=== PATIENT | male | born 1945 | race Caucasian/White ===

== ENCOUNTER 2020-01-24 15:47 | Emergency (ER) | payer MEDICARE, BC ==
[2020-01-24 16:04] VITALS: BP 138/69; PULSE 60
[2020-01-24] MEDS ORDERED: Bacitracin Oint 1 GM U/D Packet TOP ONE (16:28)
--- NOTE | 2020-01-24 17:22 | EDM.PDOC ---
ED HPI GENERAL MEDICAL PROBLEM - General Chief Complaint: Laceration Stated Complaint: RIGHT INDEX FINGER CUT Time Seen by Provider: 01/24/20 16:40 Source of Information: Reports: Patient, RN History Limitations: Reports: No Limitations - History of Present Illness INITIAL COMMENTS - FREE TEXT/NARRATIVE: 74 yo male patient presents to the ED for c/o laceration to the right index finger early this afternoon. He was cutting tree branches and cut his finger with a chainsaw. He was able to replace the skin flap and control the bleeding. He applied a bandage at home. However, the laceration hurt anytime he moved the knuckle so he presented to ED at that time. last tetanus is 2014 according to [facility] although pt thinks he had one in 2018. Onset: Today Onset Date: 01/24/20 Duration: Hour(s): (1-2 hours prior to arrival) Location: Reports: Upper Extremity, Right (index finger) Quality: Reports: Throbbing Severity: Moderate Improves with: Reports: Immobilization Worsens with: Reports: Movement Associated Symptoms: Reports: No Other Symptoms Treatments FINANCIAL SERVICES MANAGER: Reports: Dressing(s) - Related Data Allergies Allergy/AdvReac Type Severity Reaction Status Date / Time venom-honey bee Allergy Swelling Verified 01/24/20 16:13 [bee venom (honey bee)] Home Meds: Home Meds Levothyroxine 1 tab PO DAILY 04/06/15 [History] Omeprazole 1 tab PO BID 04/06/15 [History] Triamterene/Hydrochlorothiazid [Triamterene-HCTZ 37.5-25 MG] 1 tab PO DAILY 04/06/15 [History] atenoloL [Tenormin] 50 mg PO DAILY 04/06/15 [History] Past Medical History Cardiovascular History: Reports: Hypertension Gastrointestinal History: Reports: Hiatal Hernia Musculoskeletal History: Reports: Fracture Other Neuro History: lumbar spine bulging disc Oncologic (Cancer) History: Reports: Prostate, Thyroid - Infectious Disease History Infectious Disease History: Reports: Chicken Pox, Measles, Mumps - Past Surgical History GI Surgical History: Reports: Hernia Repair/Other Other Male Surgeries/Procedures: prostate removed. Other Oncologic Surgeries/Procedures: prostectomy,thyroidectomy Social & Family History - Tobacco Use Smoking Status *Q: Never Smoker - Caffeine Use Caffeine Use: Reports: Coffee ED ROS GENERAL - Review of Systems Review Of Systems: See Below Constitutional: Reports: No Symptoms Respiratory: Reports: No Symptoms Cardiovascular: Reports: No Symptoms Musculoskeletal: Reports: Hand Pain (right index finger) Skin: Reports: Wound Neurological: Reports: No Symptoms Psychiatric: Reports: No Symptoms Hematologic/Lymphatic: Reports: No Symptoms Immunologic: Reports: No Symptoms (jagged laceration to right index finger) ED EXAM, SKIN/RASH Exam: See Below Exam Limited By: No Limitations General Appearance: Alert, No Apparent Distress Respiratory/Chest: No Respiratory Distress, No Accessory Muscle Use Peripheral Pulses: 2+: Radial (L), Radial (R) Extremities: Normal Range of Motion, Normal Capillary Refill Neurological: Alert, Oriented, No Motor/Sensory Deficits (pt has full ROM to right index finger/ able to fully extend and flex with/without resistance- sensation intact- no deficits noted.) Psychiatric: Normal Affect Skin: Warm, Dry, Other (Laceration is 2 cm in lenght and a narrow J shaped. skin flap over the knuckle approx 4mm length x 2mm width) Location, Skin: Upper Extremity, Right (medial side of right index finger) ED SKIN PROCEDURES - Laceration/Wound Repair Right Medial Digit - 2nd (Index) Appearance: Superficial, Irregular ("J" shaped (narrow skin flap)), Mildly Contaminated Distal NVT: Neuro & Vascular Intact, No Tendon Injury Anesthetic Type: Local Local Anesthesia - Lidocaine (Xylocaine): 1% Plain Local Anesthetic Volume: 4cc Skin Prep: Chlorhexidine (Hibiciens), Saline, Sterile Drape Exploration/Debridement/Repair: Wound Explored, Explored to Base, Minimal Debridement, Foreign Material Removed, Multiple Flaps Aligned Closed with: Sutures Lac/Wound length In cm: 2 Suture Size: 4-0 # of Sutures: 10 Suture Type: Prolene Sterile Dressing Applied: Nurse Tetanus Status Addressed: Yes Course - Vital Signs Last Recorded V/S: Last Vital Signs Temp 96 F L 01/24/20 16:17 Pulse 60 01/24/20 16:17 Resp 16 01/24/20 16:17 BP 138/69 01/24/20 16:17 Pulse Ox 96 01/24/20 16:17 - Orders/Labs/Meds Meds: Medications Discontinued Medications Generic Name Dose Route Start Last Admin Trade Name Freq PRN Reason Stop Dose Admin Bacitracin 1 dose 01/24/20 16:28 01/24/20 16:39 Bacitracin Oint 1 Gm TOP 01/24/20 16:29 1 dose ONETIME ONE Administration Lidocaine HCl 5 ml 01/24/20 16:28 01/24/20 16:39 Xylocaine-Mpf 1% INJECT 01/24/20 16:29 5 ml ONETIME ONE Administration Departure - Departure Time of Disposition: 17:18 Disposition: Home, Self-Care 01 Clinical Impression: Laceration of right index finger with foreign body - Discharge Information *PRESCRIPTION DRUG MONITORING PROGRAM REVIEWED*: Not Applicable *COPY OF PRESCRIPTION DRUG MONITORING REPORT IN PATIENT AJAY: Not Applicable Instructions: Sutures, Jaylan, or Adhesive Wound Closure, [id number] Referrals: Umair Barton MD [Primary Care Provider] - Forms: ED Department Discharge Additional Instructions: Keep your stitches clean and dry. Keep covered while working or if wound has a chance to get dirty. Wash and pat dry twice daily. No more ointment on sutures. monitor for signs of infection (redness, warmth, drainage, red streaking, swollen knuckle, and/or fever). If signs of infection are present, you will need to be seen for antibiotics. Suture removal in 8 days. You may return to ED or at clinic to have sutures removed. Call or return to ED with any concerns. Sepsis Event Note (ED) - Evaluation Sepsis Screening Result: No Definite Risk - Focused Exam Vital Signs: Vital Signs Temp Pulse Resp BP Pulse Ox 01/24/20 16:17 96 F L 60 16 138/69 96 01/24/20 16:03 96 F L 60 16 138/69 96
== END 2020-01-24 17:25 | disposition home or self-care (01) ==
LOC: JP.ED 15:47
DX: S61.210A Laceration without foreign body of right index finger without damage to nail, initial encounter (principal); I10 Essential (primary) hypertension; E07.9 Disorder of thyroid, unspecified; Z91.030 Bee allergy status; Z79.899 Other long term (current) drug therapy; W27.0XXA Contact with workbench tool, initial encounter
CPT/HCPCS: 12041; 99282; J2001

== ENCOUNTER 2020-01-29 12:00 | Inpatient (IN) | payer MEDICARE, BC ==
[2020-01-29] MEDS ORDERED: HYDROmorphone 1 MG/ML Syringe IM ONE (12:23)
--- NOTE | 2020-01-29 12:41 | EDM.PDOC ---
ED HPI GENERAL MEDICAL PROBLEM - General Stated Complaint: FALL VIA NORTH Time Seen by Provider: 01/29/20 12:15 Source of Information: Reports: Patient, EMS History Limitations: Reports: No Limitations - History of Present Illness INITIAL COMMENTS - FREE TEXT/NARRATIVE: 74-year-old male was on a ladder about 6 feet off the ground when he slipped sideways and landed on the ladder and hurt his mid back. He also has some superficial abrasions on his left scalp and left shoulder. He has intense pain in the mid back just below the shoulder blades, no shortness of breath, abdominal pain or extremity pain. He was brought in by ambulance. Onset: Sudden Duration: Hour(s): (1 hour ago) Location: Reports: Back Quality: Reports: Burning, Sharp, Stabbing Worsens with: Reports: Other (Sitting up seems to cause more discomfort), Movement Associated Symptoms: Denies: Confusion, Cough, Fever/Chills, Headaches, Malaise, Nausea/Vomiting, Shortness of Breath Upper Back Pain Score (Numeric/FACES): 9 - Related Data Allergies Allergy/AdvReac Type Severity Reaction Status Date / Time venom-honey bee Allergy Swelling Verified 01/29/20 12:31 [bee venom (honey bee)] Home Meds: Home Meds Levothyroxine 1 tab PO DAILY 04/06/15 [History] Omeprazole 1 tab PO BID 04/06/15 [History] Triamterene/Hydrochlorothiazid [Triamterene-HCTZ 37.5-25 MG] 1 tab PO DAILY 04/06/15 [History] atenoloL [Tenormin] 50 mg PO DAILY 04/06/15 [History] Past Medical History Cardiovascular History: Reports: Hypertension Gastrointestinal History: Reports: Hiatal Hernia Musculoskeletal History: Reports: Fracture Other Neuro History: lumbar spine bulging disc Oncologic (Cancer) History: Reports: Prostate, Thyroid - Infectious Disease History Infectious Disease History: Reports: Chicken Pox, Measles, Mumps - Past Surgical History GI Surgical History: Reports: Hernia Repair/Other Other Male Surgeries/Procedures: prostate removed. Other Oncologic Surgeries/Procedures: prostectomy,thyroidectomy Social & Family History - Caffeine Use Caffeine Use: Reports: Coffee Review of Systems - Review of Systems Review Of Systems: See Below Constitutional: Denies: Fever Respiratory: Denies: Shortness of Breath, Pleuritic Chest Pain Cardiovascular: Denies: Chest Pain GI/Abdominal: Denies: Abdominal Pain Musculoskeletal: Reports: Shoulder Pain (Some posterior left shoulder discomfort). Denies: Neck Pain Skin: Reports: Other (Superficial abrasions on the left scalp) Neurological: Denies: Headache ED EXAM, GENERAL - Physical Exam Exam: See Below Exam Limited By: No Limitations General Appearance: Alert, Mild Distress (Intensely uncomfortable his mid thoracic spine with any movement) Eye Exam: Bilateral Eye: Normal Inspection Head: Other (Superficial abrasions are present on the left frontal scalp, no hematoma or bony injury) Neck: Supple, Non-Tender Respiratory/Chest: No Respiratory Distress, Lungs Clear Cardiovascular: Regular Rate, Rhythm GI/Abdominal: Soft, Non-Tender Back Exam: Vertebral Tenderness (Patient has vertebral tenderness to the thoracic spine between the scapula, no visual evidence of trauma such as abrasion, swelling or deformity) Course - Vital Signs Last Recorded V/S: Last Vital Signs Temp 96.2 F L 01/29/20 12:36 Pulse 61 01/29/20 16:06 Resp 16 01/29/20 15:40 BP 157/96 H 01/29/20 16:06 Pulse Ox 98 01/29/20 16:06 - Orders/Labs/Meds Orders: Medication Orders Hydrocodone Bitart/Acetaminophen (Morton 325-5 Mg) 2 tab PO Q4H PRN PRN Reason: Pain (moderate 4-6) Benzocaine/Menthol (Cepacol Sore Throat) 1 lozenge MUCMEM Q1H PRN PRN Reason: Sore Throat Bisacodyl (Dulcolax) 5 mg PO DAILY PRN PRN Reason: Constipation Docusate Sodium (Colace) 100 mg PO BID PRN PRN Reason: Constipation Hydroxyzine HCl (Vistaril) 50 mg IM Q4H PRN PRN Reason: Nausea Sodium Chloride (Normal Saline) 1,000 mls @ 75 mls/hr IV ASDIRECTED [facility] Ondansetron HCl (Zofran) 4 mg IVPUSH Q6H PRN PRN Reason: Nausea/Vomiting Last Admin: 01/29/20 16:22 Dose: 4 mg Documented by: YOVANI Promethazine HCl (Phenergan) 25 mg IM Q6H PRN PRN Reason: Nausea Labs: Laboratory Tests 01/29/20 01/29/20 Range/Units 13:35 13:35 WBC 10.2 (4.5-11.0) K/uL RBC 4.52 (4.30-5.90) M/uL Hgb 13.4 D (12.0-15.0) g/dL Hct 40.4 (40.0-54.0) % MCV 89 (80-98) fL MCH 30 (27-31) pg MCHC 33 (32-36) % Plt Count 258 (150-400) K/uL Add Manual Diff Yes Neutrophils % (Manual) 79 H (36-66) % Band Neutrophils % 3 L (5-11) % Lymphocytes % (Manual) 10 L (24-44) % Monocytes % (Manual) 7 H (2-6) % Eosinophils % (Manual) 1 L (2-4) % Sodium 135 L (140-148) mmol/L Potassium 3.6 (3.6-5.2) mmol/L Chloride 99 L (100-108) mmol/L Carbon Dioxide 29 (21-32) mmol/L Anion Gap 10.6 (5.0-14.0) mmol/L BUN 21 H (7-18) mg/dL Creatinine 1.0 (0.8-1.3) mg/dL Est Cr Clr Drug Dosing 52.16 mL/min Estimated GFR (MDRD) > 60 (>60) Glucose 132 H (74-106) mg/dL Calcium 8.4 L (8.5-10.1) mg/dL Meds: Medications Generic Name Dose Route Start Last Admin Trade Name Freq PRN Reason Stop Dose Admin Hydrocodone Bitart/Acetaminophen 2 tab 01/29/20 15:49 Morton 325-5 Mg PO Q4H PRN Pain (moderate 4-6) Benzocaine/Menthol 1 lozenge 01/29/20 15:49 Cepacol Sore Throat MUCMEM Q1H PRN Sore Throat Bisacodyl 5 mg 01/29/20 15:49 Dulcolax PO DAILY PRN Constipation Docusate Sodium 100 mg 01/29/20 15:49 Colace PO BID PRN Constipation Hydroxyzine HCl 50 mg 01/29/20 15:49 Vistaril IM Q4H PRN Nausea Sodium Chloride 1,000 mls @ 75 mls/hr 01/29/20 16:00 Normal Saline IV ASDIRECTED [facility] Ondansetron HCl 4 mg 01/29/20 15:49 01/29/20 16:22 Zofran IVPUSH 4 mg Q6H PRN Administration Nausea/Vomiting Promethazine HCl 25 mg 01/29/20 15:49 Phenergan IM Q6H PRN Nausea Discontinued Medications Generic Name Dose Route Start Last Admin Trade Name Freq PRN Reason Stop Dose Admin Hydromorphone HCl 1 mg 01/29/20 12:23 01/29/20 12:29 Dilaudid IM 01/29/20 12:24 1 mg ONETIME ONE Administration Hydromorphone HCl 0.5 mg 01/29/20 14:17 01/29/20 14:22 Dilaudid IVPUSH 01/29/20 14:18 0.5 mg ONETIME ONE Administration Sodium Chloride 1,000 mls @ 1,000 mls/hr 01/29/20 13:45 01/29/20 13:41 Normal Saline IV 1,000 mls/hr ASDIRECTED SAM Administration Sodium Chloride 72 mls @ 3.1 mls/sec 01/29/20 14:30 01/29/20 14:39 Normal Saline IV 01/29/20 22:00 3.1 mls/sec ASDIRECTED SAM Administration Iopamidol 105 ml 01/29/20 14:25 01/29/20 14:39 Isovue-300 (61%) IV 01/29/20 14:26 105 ml ONETIME ONE Administration - Re-Assessments/Exams Free Text/Narrative Re-Assessment/Exam: 01/29/20 12:44 Patient was given 1 mg of IM Dilaudid which will be followed by a thoracic spine CT scan. 01/29/20 13:[address] showed no fracture but showed a hematoma around the left kidney. An IV was started, 1000 cc of normal saline was initiated and a CBC and BMP drawn. Plan is a CT abdomen pelvis with IV contrast. 01/29/20 17:08 CT abdomen pelvis confirmed the left kidney hematoma. There appeared to be a small amount of blushing but no brisk bleeding in the area. Hemoglobin is normal. Vitals remained stable. Dr. Avina kindly agreed to admit the patient for observation and monitoring. Departure - Departure Time of Disposition: 17:07 Disposition: Admitted As Inpatient 66 Clinical Impression: Traumatic hematoma of left kidney Abrasion of scalp Qualifiers: Encounter type: initial encounter Qualified Code(s): S00.01XA - Abrasion of scalp, initial encounter - Discharge Information Sepsis Event Note (ED) - Focused Exam Vital Signs: Vital Signs Temp Pulse Resp BP Pulse Ox 01/29/20 15:40 56 L 16 150/92 H 93 L 01/29/20 14:37 175/90 H 99 01/29/20 12:36 96.2 F L 55 L 17 167/90 H 92 L 01/29/20 12:10 96.2 F L 55 L 17 167/90 H 92 L
--- NOTE | 2020-01-29 13:26 | CT ---
Thoracic Spine wo Cont CLINICAL HISTORY: Fall, pain TECHNIQUE: 2 x 2 mm axial sections were taken through the thoracic spine without contrast. MPR images were also obtained and reviewed. Auto dosage reduction and iterative reconstruction techniques employed. FINDINGS: The thoracic vertebral body heights are maintained throughout. There is diffuse disc space narrowing with spondylosis. Alignment is maintained. There is fusion of the C6-7 disc which may be congenital or chronic. The visualized posterior ribs appear intact. Spinous processes appear intact. No paraspinal hematoma is identified. There is dense stranding in the left perinephric and renal space. This suggests a hematoma. There are some chronic lung changes. There are atherosclerotic changes in the aorta. There is some dilatation aortic arch. There is some concentric calcification within the descending thoracic aorta which suggests possible chronic dissection. IMPRESSION: Degenerative disc changes without fracture or subluxation Moderate stranding in the left perinephric and perirenal space suggest renal hematoma surrounding a renal cyst Atheromatous changes in the aorta with concentric intraluminal thrombus versus a chronic dissection
[2020-01-29] MEDS ORDERED: Sodium Chloride 0.9% 1,000 ML IV SCH (13:45)
[2020-01-29] MEDS ORDERED: HYDROmorphone 0.5 MG/0.5 ML Syringe IVPUSH ONE (14:17)
[2020-01-29] MEDS: Iopamidol 612 MG/ML 500 ML Multipack Bottle IV ONE (14:39)
--- NOTE | 2020-01-29 15:06 | CT ---
Abdomen Pelvis w Cont CLINICAL HISTORY: Fall, back pain COMPARISON: None available. TECHNIQUE: Transverse scans were obtained from the base of the lungs to the pubic symphysis following oral contrast and IV infusion of contrast.Auto dosage reduction and iterative reconstructiontechniques employed. FINDINGS: There is a hematoma in the perinephric and pararenal space around the left kidney. There is some contrast in the lower portion of this hematoma suggesting some active bleeding. The there is a low-attenuation focus in the upper pole consistent with the large cyst. There is some internal density which may be related to hemorrhage. There are multiple cysts on the right kidney. Aorta shows moderate atheromatous change. The there is intimal thickening in the thoracic aorta. This could be related to old dissection. Bladder has normal contour. There is a right inguinal hernia which contains peritoneal fat. The lung bases show some mild patchy atelectasis at the left lung base. There is a small hiatal hernia. The liver shows no mass or biliary dilatation. The gallbladder has a normal appearance. The spleen is a smooth contour. There is some stranding in the perisplenic region inferiorly. This is felt to be related to renal trauma. The pancreas shows some fatty infiltration. The adrenal glands are normal bilaterally . The ureters have a normal course and caliber as seen. IMPRESSION: Left renal injury with perinephric and pararenal space hematoma. There is no obvious renal fracture. There is some hemorrhage within a pre-existing renal cyst Small collections of contrast suggests some persistent active bleeding inferiorly. This extends down the right psoas margin into the upper pelvis. Bilateral renal cysts Previous abdominal surgery
[2020-01-29] MEDS ORDERED: Benzocaine/Cetylpyridinium/Menthol Lozenge MUCMEM PRN (15:49)
[2020-01-29] MEDS ORDERED: hydrOXYzine HCL 100 MG/2 ML SDV IM PRN (15:49)
[2020-01-29] MEDS: Ondansetron 4 MG/2 ML SDV IVPUSH PRN ×2 (16:22→20:22)
[2020-01-29] MEDS: Acetaminophen/HYDROcodone 325-5 MG Tab PO PRN (17:30)
[2020-01-29] MEDS: Sodium Chloride 0.9% 1,000 ML IV SCH (18:22)
--- NOTE | 2020-01-29 20:17 | CONS ---
DATE OF SERVICE: 01/29/2020 REFERRING PHYSICIAN: CONSULTING PHYSICIAN: Jose Avina MD Consult for Dr. Rodriguez. INDICATIONS: Trauma. HISTORY OF PRESENT ILLNESS: This is a 74-year-old male who fell about 6 feet from a height off a ladder. The patient landed on his back. His main concern is back pain, which is 3/10 to 4/10. PAST MEDICAL HISTORY: Arnol fundoplication, thyroidectomy, history of hiatal hernia which was repaired via the Arnol fundoplication, history of Meckel diverticulum resection, hypertension. SOCIAL HISTORY: He is not a smoker. FAMILY HISTORY: Noncontributory. REVIEW OF SYSTEMS: GENERAL: The patient is appropriate for condition. HEENT: Pupils are equal. NECK: Supple. LUNGS: Clear. CARDIOVASCULAR: Regular rhythm and rate. ABDOMEN: Mildly obese, nontender, nondistended. EXTREMITIES: Full range of motion. Strength 5/5. NEUROLOGIC: Oriented x3. Cranial nerves 2 through 12 are grossly intact. PSYCHIATRIC: Appropriate for condition. LABORATORY RESULTS: Show a normal hemoglobin, normal white blood cell count. IMAGING DATA: I did review the CT scans, which show a left renal injury with hematoma. There is some question if this is a cyst or actual hematoma. This was not graded by radiologist and radiologist was unable to be contacted. The patient also underwent a thoracic spine CT which did not show any evidence of fracture. ASSESSMENT AND PLAN: Renal injury, left. PLAN: The patient admitted to ICU for serial hemoglobin evaluation. We have been attempted to contact Radiology to further determine the extent of the hematoma. We will continue a full liquid diet. Jose Avina MD /[id number]
[2020-01-29] MEDS: Promethazine 25 MG/ML SDV IM PRN (20:39)
[2020-01-30] MEDS: Acetaminophen/HYDROcodone 325-5 MG Tab PO PRN ×4 (04:01→20:53)
[2020-01-30] MEDS: Promethazine 25 MG/ML SDV IM PRN (04:02)
[2020-01-30] MEDS: Sodium Chloride 0.9% 1,000 ML IV SCH (07:51)
[2020-01-30] MEDS ORDERED: Iopamidol 612 MG/ML 500 ML Multipack Bottle IV ONE (08:15)
[2020-01-30] MEDS: Iopamidol 612 MG/ML 500 ML Multipack Bottle IV ONE (08:18)
--- NOTE | 2020-01-30 09:36 | CT ---
Urogram CT UROGRAM CLINICAL HISTORY: Renal trauma COMPARISON: 01/29/2020 TECHNIQUE: Multiple contiguous axial images were obtained from the level of the lung bases down to the pubic symphysis without and with the IV infusion of iodinated contrast oral contrast was not administered. Coronal and sagital reconstructions of the renal collecting systems, ureters, and bladder were also obtained .Auto dosage reduction and iterative reconstruction techniques employed. FINDINGS:The visualized lung bases show some bibasal atelectasis. There is a small but increasing left pleural effusion.. The liver has a normal contour. Gallbladder contains some IV contrast which is likely related to vicarious excretion. The inferior margin of the spleen is poorly defined as it is involved in the hematoma in the perinephric and perirenal spaces. The pancreas is well defined. There is some fatty infiltration. Both kidneys are excreting. There is some medial displacement of the left ureter due to retroperitoneal hematoma. There is no evidence of excreted contrast within the hematoma or retroperitoneum. The size of the hematoma has increased slightly. There is no evidence of active bleeding. There is atheromatous changes in the aorta. There are bilateral renal cyst.. Patient is a small periumbilical hernia which contains transverse colon. There is no evidence of incarceration. There are nondisplaced fractures of the 9th, 10th and 11th ribs. There is a small but increasing left pleural effusion. This does not appear to be hemothorax IMPRESSION: Slight increase in the size of the left perirenal hematoma. There is no evidence of active bleeding There is no extravasation of contrast from the collecting system Small but increasing left pleural effusion. There are nondisplaced fractures of the posterior 9th, 10th and 11th ribs.
[2020-01-30] MEDS: Pantoprazole 40 MG Tab.CR PO SCH (10:43)
--- NOTE | 2020-01-30 12:43 | PN ---
DATE OF SERVICE: 01/30/2020 SUBJECTIVE: The patient is doing better today. His abdominal pain is well controlled. He had some nausea previously with respect to yesterday, but does not have any issues now. OBJECTIVE: VITAL SIGNS: Stable. Blood pressure 135/74, pulse 64, respiration is 14. ABDOMEN: Nontender, nondistended. CARDIOVASCULAR: Regular rhythm and rate. RESPIRATORY: Lungs clear to auscultation bilaterally. LABORATORY RESULTS: Show a white blood cell count of 10.5, which is down from 11.4, however, appears to be stabilizing. IMAGING DATA: I did review the CT urogram this morning. No urinary extravasation. He feels the bleeding has stopped or has decreased significantly. ASSESSMENT: Renal injury. PLAN: The patient will continue observation. We will change the hemoglobins to q.8 hours. We will also start on regular diet and start some of his home medications at this time. Jose Avina MD /[id number]
[2020-01-31] MEDS: Acetaminophen/HYDROcodone 325-5 MG Tab PO PRN ×4 (03:15→18:43)
[2020-01-31] MEDS: Pantoprazole 40 MG Tab.CR PO SCH (07:46)
[2020-01-31] MEDS: Sodium Chloride 0.9% 1,000 ML IV SCH (07:48)
[2020-01-31] MEDS ORDERED: LEVOTHYROXINE PO SCH (09:00)
--- NOTE | 2020-01-31 11:00 | PN ---
DATE OF SERVICE: 01/31/2020 SUBJECTIVE: The patient is doing very well. Pain is well controlled. No nausea, vomiting, shortness of breath, or chest pain. Doing very well. OBJECTIVE: VITAL SIGNS: Stable. CARDIOVASCULAR: Regular rhythm and rate. RESPIRATORY: Lungs clear to auscultation bilaterally. ABDOMEN: Nondistended, nontender. LABORATORY RESULTS: Show hemoglobin 10.2. ASSESSMENT: Renal trauma. PLAN: We will change his hemoglobin to q.12 hours. If the patient is hemodynamically stable in 24 hours, we will consider for discharge. Jose Avina MD /[id number]
[2020-01-31] MEDS: Bisacodyl 5 MG Tab PO PRN (16:18)
[2020-01-31] MEDS: Docusate Sodium 100 MG Cap PO PRN (16:18)
[2020-01-31] MEDS ORDERED: Aluminum Hydroxide/Magnesium Hydroxide/Simethicone Susp 30 ML Cup PO PRN (18:14)
[2020-01-31] MEDS: Cyclobenzaprine 10 MG Tab PO PRN (20:48)
[2020-02-01] MEDS: Acetaminophen/HYDROcodone 325-5 MG Tab PO PRN ×5 (00:13→20:58)
[2020-02-01] MEDS: Cyclobenzaprine 10 MG Tab PO PRN ×2 (05:15→20:58)
[2020-02-01] MEDS ORDERED: Pantoprazole 40 MG Tab.CR PO SCH (07:00)
[2020-02-01] MEDS: Pantoprazole 40 MG Tab.CR PO SCH (07:38)
[2020-02-01] MEDS: Bisacodyl 5 MG Tab PO PRN (10:27)
[2020-02-01] MEDS: Docusate Sodium 100 MG Cap PO PRN (10:27)
--- NOTE | 2020-02-01 10:49 | PN ---
DATE OF SERVICE: 02/01/2020 SUBJECTIVE: Patient doing well. Hemoglobin did drop to 9.1 today. However, no other concerns. No nausea, vomiting, shortness of breath, or chest pain. OBJECTIVE: VITAL SIGNS: Vital signs are stable. CARDIOVASCULAR: Regular rhythm and rate. RESPIRATORY: Lungs are clear to auscultation bilaterally. ABDOMEN: Incision healing well. ASSESSMENT: Status post renal trauma. PLAN: We will change his hemoglobin to every 24 hours. We will restart his atenolol and hydrochlorothiazide and we will recheck hemoglobin in a.m. Jose Avina MD /[id number]
[2020-02-01] MEDS ORDERED: Atenolol 25 MG Tab PO SCH (11:00)
[2020-02-01] MEDS: Hydrochlorothiazide/Triamterene 25-37.5 Tab PO SCH (11:16)
[2020-02-01] MEDS ORDERED: Magnesium Citrate Solution 296 ML Bottle PO ONE (16:40)
[2020-02-02] MEDS: Cyclobenzaprine 10 MG Tab PO PRN (04:59)
[2020-02-02] MEDS: Acetaminophen/HYDROcodone 325-5 MG Tab PO PRN (04:59)
[2020-02-02 07:12] VITALS: BP 140/80; PULSE 76
[2020-02-02] MEDS: Pantoprazole 40 MG Tab.CR PO SCH (07:17)
[2020-02-02] MEDS: Hydrochlorothiazide/Triamterene 25-37.5 Tab PO SCH (08:14)
[2020-02-02] MEDS ORDERED: Metoprolol Succinate 50 MG Tab.ER PO SCH (09:00)
[2020-02-02] MEDS: Bisacodyl 5 MG Tab PO PRN (09:03)
[2020-02-02] MEDS: Docusate Sodium 100 MG Cap PO PRN (09:03)
--- NOTE | 2020-02-02 09:31 | PN ---
DATE OF SERVICE: 02/02/2020 SUBJECTIVE: The patient is doing well. Hemoglobin is now stable. Pain is well controlled. No nausea, vomiting, shortness of breath, or chest pain. OBJECTIVE: VITAL SIGNS: Stable. CARDIOVASCULAR: Regular rhythm and rate. RESPIRATORY: Lungs are clear to auscultation bilaterally. ABDOMEN: No rebound, no guarding, no pain with palpation. ASSESSMENT: Status post renal trauma. PLAN: The patient will be discharged today. Please see discharge summary for further details. Jose Avina MD /[id number]
--- NOTE | 2020-02-02 09:55 | DISCH ---
DISCHARGE DIAGNOSIS: Renal trauma. SUMMARY OF HOSPITAL COURSE: Karen, 74-year-old, male who had a fall from height resulting in renal trauma. The patient did well. He received a total of 1 unit of packed red blood cells. His hemoglobin eventually stable stabilized. He remained hemodynamically stable throughout the entire hospitalization. The patient is passing large amount of gas but has not had a bowel movement. He does explain to me this is a very common occurrence for him. It was recommended that he stayed until this could be evaluated, but he has declined at this time. We discussed signs, symptoms, complications, the role of the emergency room, and other risks not listed here. Of note, chest x-ray was performed on 02/01/2020 and has not been read due to unknown reasons per Radiology Department. Nonetheless, cursory exam does not show any gross examination.
--- NOTE | 2020-02-02 10:32 | CR ---
CHEST: 2 view CLINICAL HISTORY:Cough COMPARISON:CT 02/01/2020 FINDINGS: There is less than optimal inspiration. There is some patchy left lower lobe airspace disease and a known left effusion. This is essentially unchanged since the CT considering technical differences. Heart is mildly enlarged. There are atherosclerotic changes in the aorta. Impression: Known left pleural effusion and patchy airspace disease. This appears similar to the prior CT.
== END 2020-02-02 09:40 | disposition home or self-care (01) | DRG 700 ==
LOC: JP.ED 12:00 → JP.ICU 15:49 → UNDODISIN 16:41
PROVIDERS: ADMIT Surgery; ATTEND Surgery
PROC: 30233N1 Transfusion of Nonautologous Red Blood Cells into Peripheral Vein, Percutaneous Approach (ICD-10-PCS; principal; 2020-01-29)
DX: S37.012A Minor contusion of left kidney, initial encounter (principal); S00.01XA Abrasion of scalp, initial encounter; W11.XXXA Fall on and from ladder, initial encounter; K44.9 Diaphragmatic hernia without obstruction or gangrene; I10 Essential (primary) hypertension; Z85.46 Personal history of malignant neoplasm of prostate; Z85.850 Personal history of malignant neoplasm of thyroid; Z90.79 Acquired absence of other genital organ(s); E89.0 Postprocedural hypothyroidism; E07.9 Disorder of thyroid, unspecified; Z91.030 Bee allergy status; Z79.890 Hormone replacement therapy; Z79.899 Other long term (current) drug therapy; Z98.890 Other specified postprocedural states
CPT/HCPCS: 36415; 72128 ×2; 74177 ×2; 80048; 85025; 96372; 96374; 99285; J1170 ×2; J7030; J7050; Q9967; 36430; 71046; 71046-26; 74178; 74178-26; 85018; 86850; 86900; 86901; 86920; 86922; A9270-GY; J2405; J2550; P9016; P9017

== ENCOUNTER 2023-01-01 10:34 | Emergency (ER) | payer MEDICARE, BC ==
[2023-01-01 10:48] LABS: BASOPHILS ABSOLUTE AUTO 0.06 K/uL (0.00-0.10); BASOPHILS PERCENT AUTO 0.4 % (0.1-1.3); EOSINOPHILS ABSOLUTE AUTO 0.09 K/uL (0.00-0.40); EOSINOPHILS PERCENT AUTO 0.6 % (0.0-5.4); HEMATOCRIT 43.4 % (38.4-49.7); HEMOGLOBIN 14.3 g/dL (12.9-16.9); IMMATURE GRAN ABSOLUTE AUTO 0.36 K/uL (0.00-0.23); IMMATURE GRAN PERCENT AUTO 2.6 % (0.0-0.7); LYMPHOCYTES ABSOLUTE AUTO 1.19 K/uL (0.8-3.3); LYMPHOCYTES PERCENT AUTO 8.4 % (11.4-47.7); MEAN CORPUSCULAR HEMOGLOBIN 29.9 pg (31.6-35.5); MEAN CORPUSCULAR HGB CONC 32.9 g/dL (31.6-35.5); MEAN CORPUSCULAR VOLUME 90.6 fL (81.4-99.0); MONOCYTES ABSOLUTE AUTO 1.14 K/uL (0.20-0.90); MONOCYTES PERCENT AUTO 8.1 % (3.3-12.6); NEUTROPHILS ABSOLUTE AUTO 11.25 K/uL (1.0-7.6); NEUTROPHILS PERCENT AUTO 79.9 % (40.0-78.1); PLATELET COUNT,PLT 201 K/uL (130-375); RED BLOOD CELL COUNT 4.79 M/uL (4.14-5.76); WHITE BLOOD CELL COUNT,WBC 14.1 K/uL (3.2-11.0)
[2023-01-01] MEDS ORDERED: Adenosine 6 MG/2 ML SDV IVPUSH ONE ×2 (10:50→11:03)
[2023-01-01] MEDS ORDERED: Adenosine 6 MG/2 ML SDV ONE ×2 (10:51→11:03)
[2023-01-01] MEDS ORDERED: Sodium Chloride 0.9% 1,000 ML IV SCH (11:00)
[2023-01-01 11:14] LABS: CALCIUM 8.9 mg/dL (8.5-10.1); EST CRCL DRUG DOSING (CG) 47.78 mL/min; POTASSIUM,K 4.4 mmol/L (3.6-5.2)
[2023-01-01 11:17] LABS: ANION GAP 10.4 mmol/L (5.0-14.0)
[2023-01-01] MEDS ORDERED: Naloxone 0.4 MG/ML SDV IVPUSH PRN (11:20)
[2023-01-01] MEDS ORDERED: Midazolam 1 MG/ML 2 ML SDV IVPUSH ONE (11:20)
[2023-01-01] MEDS ORDERED: fentaNYL 50 MCG/ML SDV IVPUSH ONE (11:20)
[2023-01-01 12:22] VITALS: BP 133/81; PULSE 80
== END 2023-01-01 12:44 | disposition home or self-care (01) ==
LOC: JP.ED 10:34
DX: I47.1 Supraventricular tachycardia (principal); I10 Essential (primary) hypertension; E03.9 Hypothyroidism, unspecified; Z79.82 Long term (current) use of aspirin; Z79.02 Long term (current) use of antithrombotics/antiplatelets; Z79.899 Other long term (current) drug therapy; Z91.030 Bee allergy status
CPT/HCPCS: 36415; 71045; 80048; 84484; 85025; 93005; 96361; 96374; 99285; J0153; J7030

== ENCOUNTER 2023-05-23 10:49 | Emergency (ER) | payer MEDICARE, BC ==
[2023-05-23 10:59] VITALS: BP 141/77; PULSE 75
[2023-05-23] MEDS ORDERED: Lidocaine 2% Jelly 10 ML Urojet MUCMEM ONE (11:37)
== END 2023-05-23 12:25 | disposition home or self-care (01) ==
LOC: JP.ED 10:49
DX: R33.9 Retention of urine, unspecified (principal); I10 Essential (primary) hypertension; I25.10 Atherosclerotic heart disease of native coronary artery without angina pectoris; E03.9 Hypothyroidism, unspecified; Z95.5 Presence of coronary angioplasty implant and graft; Z91.030 Bee allergy status; Z79.82 Long term (current) use of aspirin; Z79.899 Other long term (current) drug therapy
CPT/HCPCS: 99283